=== PATIENT | female | born 1945 | race Caucasian/White ===

== ENCOUNTER 2021-08-04 17:56 | Inpatient (IN) ==
[2021-08-04] MEDS ORDERED: ONDANSETRON 4 MG/2 ML VIAL IV STA (18:55)
[2021-08-04] MEDS ORDERED: HYDROmorphone 2 MG/1 ML VIAL IV STA (18:55)
[2021-08-04] MEDS ORDERED: hydrALAZINE 20 MG/1 ML VIAL IV PRN (19:36)
[2021-08-04] MEDS ORDERED: GLUCAGON 1 MG VIAL IM PRN (19:36)
[2021-08-04] MEDS ORDERED: ONDANSETRON 4 MG/2 ML VIAL IV PRN (19:36)
[2021-08-04] MEDS ORDERED: DEXTROSE 10% 250 ML BAG IV PRN (19:49)
[2021-08-04] MEDS ORDERED: ALPRAZolam 0.5 MG TABLET PO PRN (19:55)
[2021-08-04 21:07] LABS: Basophils # 0.1 10*3/uL (0.0-0.2); Basophils % 0.4 % (0.0-0.8); Eosinophils % 0.1 % (0.00-10.9); Hemoglobin 13.3 GM/DL (12.0-16.0); Immature Granulocytes % 0.7 %; Lymphocytes % 14.5 % (21.3-54.2); Mean Corpuscular HGB Conc 31.7 GM/DL (32-36); Mean Corpuscular Volume 89.4 FL (87-102); Neutrophils % 77.3 % (38.7-73.9); Platelet Count 292 T/CUMM (130-400); Red Cell Distribution Width 13.3 % (9.3-17.3); White Blood Count 13.8 T/CUMM (4-12)
[2021-08-04] MEDS: ATORVASTATIN 10 MG TABLET PO SCH (21:17)
[2021-08-04 21:19] LABS: Calcium 8.9 MG/DL (8.5-10.1); Osmolality,Calculated 281.7 MOS/KG (273-304); Potassium 3.7 MMOL/L (3.5-5.1)
[2021-08-04 22:10] LABS: Glucose,Urine (UA) Negative (Negative); Ketones,Urine Negative (Negative); Nitrite,Urine Negative (Negative); Protein,Urine Negative; Urine Appearance Clear (Clear); Urine Color Yellow (Yellow); Urine Specific Gravity 1.015 (1.001-1.035)
[2021-08-04 22:11] LABS: Bacteria,Urine Occasional /HPF (Few); Bilirubin,Urine Negative (Negative); Blood, Urine Negative (Negative); RBC,Urine <1 /HPF (0-4); Urine Urobilinogen 0.2 EU/DL (<2.0)
[2021-08-04] MEDS: MELATONIN 3 MG TABLET PO SCH (23:08)
[2021-08-04] MEDS: HYDROmorphone 2 MG/1 ML VIAL IV PRN (23:08)
[2021-08-04 23:40] LABS: PT Patient Result 11.5 SECS (10.5-12.0)
[2021-08-05] MEDS: LACTATED RINGERS 1,000 ML IV SCH ×3 (03:40→22:57)
[2021-08-05] MEDS: HYDROmorphone 2 MG/1 ML VIAL IV PRN ×2 (04:57→10:37)
[2021-08-05 05:33] LABS: Basophils # 0.1 10*3/uL (0.0-0.2); Basophils % 0.5 % (0.0-0.8); Eosinophils % 0.2 % (0.00-10.9); Hematocrit 40.9 VOL% (35.7-47.0); Hemoglobin 12.7 GM/DL (12.0-16.0); Immature Granulocytes % 0.6 %; Immature Granulocytes Absolute 0.06 #; Mean Corpuscular HGB Conc 31.1 GM/DL (32-36); Mean Corpuscular Volume 89.9 FL (87-102); Mean Platelet Volume 10.8 FL (9.6-12.0); Monocytes % 6.5 % (1.7-12.7); Neutrophils % 72.2 % (38.7-73.9); Platelet Count 263 T/CUMM (130-400); Red Blood Count 4.55 MC/CUMM (3.8-5.5); Red Cell Distribution Width 13.6 % (9.3-17.3); White Blood Count 10.2 T/CUMM (4-12)
[2021-08-05 07:02] LABS: Calcium 8.9 MG/DL (8.5-10.1); Osmolality,Calculated 283.5 MOS/KG (273-304); Potassium 4.2 MMOL/L (3.5-5.1)
[2021-08-05] MEDS ORDERED: VALSARTAN 160 MG TABLET PO SCH (09:00)
[2021-08-05] MEDS ORDERED: amLODIPine 5 MG TABLET PO SCH (09:00)
[2021-08-05] MEDS ORDERED: ARIPiprazole 2 MG TABLET PO SCH (09:00)
[2021-08-05] MEDS ORDERED: SODIUM CHLORIDE 0.9% 100 ML IV ONE (09:19)
[2021-08-05] MEDS ORDERED: MIDAZOLAM 2 MG/2 ML VIAL ONE (09:19)
[2021-08-05] MEDS ORDERED: propofoL 200 MG/20 ML VIAL IV ONE (09:19)
[2021-08-05] MEDS ORDERED: fentaNYL 100 MCG/2 ML VIAL ONE (09:19)
[2021-08-05] MEDS ORDERED: LIDOCAINE 2% 5 ML VIAL ONE (09:19)
[2021-08-05] MEDS ORDERED: KETAMINE 500 MG/10 ML VIAL ONE (13:13)
[2021-08-05] MEDS ORDERED: ONDANSETRON 4 MG/2 ML VIAL ONE (13:54)
[2021-08-05] MEDS ORDERED: BUPIVACAINE SPINAL 0.75% 2 ML AMP SPINAL ONE (14:20)
[2021-08-05] MEDS ORDERED: LABETALOL 100 MG/20 ML VIAL IV ONE (15:11)
[2021-08-05] MEDS ORDERED: flumazeniL 0.5 MG/5 ML VIAL IV ONE (15:41)
[2021-08-05] MEDS: PANTOPRAZOLE 40 MG TABLET PO SCH (18:14)
[2021-08-05] MEDS: ASPIRIN CHEW 81 MG TABLET PO SCH (18:14)
[2021-08-05] MEDS: FOLIC ACID 1 MG TABLET PO SCH (18:14)
[2021-08-05] MEDS: ESCITALOPRAM 10 MG TABLET PO SCH (18:14)
[2021-08-05 20:49] LABS: ABG Base Excess 1.4 MMOL/L (-2.5-2.5); ABG HCO3 25.5 MMOL/L (20-26); ABG Oxygen Saturation 89.6 % (95-100); ABG PCO2 67.9 MM HG (35-48); ABG PH 7.261 (7.35-7.45); ABG TCO2 27.7 MMOL/L (23-27)
[2021-08-05 20:56] LABS: Basophils # 0.1 10*3/uL (0.0-0.2); Basophils % 0.4 % (0.0-0.8); Eosinophils # 0.1 10*3/uL (0.0-0.87); Eosinophils % 0.5 % (0.00-10.9); Hematocrit 40.5 VOL% (35.7-47.0); Hemoglobin 12.3 GM/DL (12.0-16.0); Immature Granulocytes % 0.4 %; Immature Granulocytes Absolute 0.05 #; Lymphocytes % 16.1 % (21.3-54.2); Mean Corpuscular HGB Conc 30.4 GM/DL (32-36); Mean Corpuscular Volume 92.9 FL (87-102); Monocytes % 7.2 % (1.7-12.7); Neutrophils % 75.4 % (38.7-73.9); Platelet Count 222 T/CUMM (130-400); Red Blood Count 4.36 MC/CUMM (3.8-5.5); Red Cell Distribution Width 13.6 % (9.3-17.3); White Blood Count 12.6 T/CUMM (4-12)
[2021-08-05 21:18] LABS: Albumin 3.1 G/DL (3.4-5.0); Bilirubin,Total 0.5 MG/DL (0.20-1.00); Calcium 8.5 MG/DL (8.5-10.1); Osmolality,Calculated 286.4 MOS/KG (273-304); Total Protein 7.2 G/DL (6.4-8.2)
[2021-08-05] MEDS: APIXABAN 2.5 MG TABLET PO SCH (22:43)
[2021-08-05] MEDS: ATORVASTATIN 10 MG TABLET PO SCH (22:43)
[2021-08-05] MEDS: LEVOTHYROXINE 50 MCG TABLET PO SCH (22:44)
[2021-08-05] MEDS: MELATONIN 3 MG TABLET PO SCH (22:44)
[2021-08-05 23:20] LABS: ABG Base Excess 1.6 MMOL/L (-2.5-2.5); ABG HCO3 25.8 MMOL/L (20-26); ABG Oxygen Saturation 96.3 % (95-100); ABG PCO2 62.5 MM HG (35-48); ABG PH 7.288 (7.35-7.45); ABG PO2 86.4 MM HG (80-95)
[2021-08-06] MEDS ORDERED: FUROSEMIDE 40 MG/4 ML VIAL IV ONE (01:19)
[2021-08-06] MEDS: LACTATED RINGERS 1,000 ML IV SCH ×2 (03:58→18:01)
[2021-08-06 04:00] LABS: Basophils # 0.1 10*3/uL (0.0-0.2); Basophils % 0.4 % (0.0-0.8); Eosinophils # 0.1 10*3/uL (0.0-0.87); Eosinophils % 1.2 % (0.00-10.9); Hematocrit 39.3 VOL% (35.7-47.0); Hemoglobin 12.3 GM/DL (12.0-16.0); Immature Granulocytes % 0.5 %; Immature Granulocytes Absolute 0.06 #; Lymphocytes # 2.6 10*3/uL (1.4-4.0); Lymphocytes % 22.3 % (21.3-54.2); Mean Corpuscular HGB Conc 31.3 GM/DL (32-36); Mean Corpuscular Volume 92.7 FL (87-102); Mean Platelet Volume 10.9 FL (9.6-12.0); Neutrophils % 68.6 % (38.7-73.9); Platelet Count 210 T/CUMM (130-400); Red Blood Count 4.24 MC/CUMM (3.8-5.5); Red Cell Distribution Width 13.6 % (9.3-17.3); White Blood Count 11.5 T/CUMM (4-12)
[2021-08-06 04:03] LABS: ABG Base Excess 4.4 MMOL/L (-2.5-2.5); ABG HCO3 28.3 MMOL/L (20-26); ABG Oxygen Saturation 97.3 % (95-100); ABG PH 7.346 (7.35-7.45); ABG PO2 91.6 MM HG (80-95); ABG TCO2 28.3 MMOL/L (23-27)
[2021-08-06 04:27] LABS: Albumin 3.1 G/DL (3.4-5.0); Bilirubin,Total 0.9 MG/DL (0.20-1.00); Calcium 8.8 MG/DL (8.5-10.1); Osmolality,Calculated 285.5 MOS/KG (273-304); Potassium 4.3 MMOL/L (3.5-5.1); Total Protein 7.6 G/DL (6.4-8.2)
[2021-08-06] MEDS: PANTOPRAZOLE 40 MG TABLET PO SCH (09:56)
[2021-08-06] MEDS: LEVOTHYROXINE 50 MCG TABLET PO SCH (09:56)
[2021-08-06] MEDS: ESCITALOPRAM 10 MG TABLET PO SCH (09:56)
[2021-08-06] MEDS: ROSUVASTATIN 10 MG TABLET PO SCH (09:56)
[2021-08-06] MEDS: APIXABAN 2.5 MG TABLET PO SCH ×2 (09:57→20:35)
[2021-08-06] MEDS: FOLIC ACID 1 MG TABLET PO SCH (09:57)
[2021-08-06] MEDS: ASPIRIN CHEW 81 MG TABLET PO SCH (09:57)
[2021-08-06] MEDS: HYDROmorphone 2 MG/1 ML VIAL IV PRN (13:52)
[2021-08-06] MEDS: ATORVASTATIN 10 MG TABLET PO SCH (20:35)
[2021-08-06] MEDS: MELATONIN 3 MG TABLET PO SCH (20:35)
[2021-08-07 02:54] LABS: ABG Base Excess 8.5 MMOL/L (-2.5-2.5); ABG HCO3 32.3 MMOL/L (20-26); ABG Oxygen Saturation 96.1 % (95-100); ABG PCO2 52.6 MM HG (35-48); ABG PH 7.425 (7.35-7.45); ABG PO2 78.3 MM HG (80-95); ABG TCO2 31.2 MMOL/L (23-27); Allen Test Positive
[2021-08-07 04:47] LABS: Basophils # 0.1 10*3/uL (0.0-0.2); Basophils % 0.5 % (0.0-0.8); Eosinophils # 0.2 10*3/uL (0.0-0.87); Eosinophils % 2.2 % (0.00-10.9); Hematocrit 33.2 VOL% (35.7-47.0); Hemoglobin 10.4 GM/DL (12.0-16.0); Immature Granulocytes % 0.7 %; Immature Granulocytes Absolute 0.07 #; Lymphocytes % 19.6 % (21.3-54.2); Mean Corpuscular HGB Conc 31.3 GM/DL (32-36); Mean Corpuscular Volume 90.7 FL (87-102); Mean Platelet Volume 11.2 FL (9.6-12.0); Monocytes % 7.8 % (1.7-12.7); Neutrophils % 69.2 % (38.7-73.9); Platelet Count 162 T/CUMM (130-400); Red Blood Count 3.66 MC/CUMM (3.8-5.5); Red Cell Distribution Width 13.3 % (9.3-17.3); White Blood Count 10.2 T/CUMM (4-12)
[2021-08-07 05:15] LABS: Calcium 8.6 MG/DL (8.5-10.1); Osmolality,Calculated 276.8 MOS/KG (273-304); Potassium 3.8 MMOL/L (3.5-5.1)
[2021-08-07] MEDS: LEVOTHYROXINE 50 MCG TABLET PO SCH (05:52)
[2021-08-07] MEDS: LACTATED RINGERS 1,000 ML IV SCH (05:52)
[2021-08-07] MEDS: PANTOPRAZOLE 40 MG TABLET PO SCH (09:11)
[2021-08-07] MEDS: ASPIRIN CHEW 81 MG TABLET PO SCH (09:11)
[2021-08-07] MEDS: ESCITALOPRAM 10 MG TABLET PO SCH (09:11)
[2021-08-07] MEDS: APIXABAN 2.5 MG TABLET PO SCH ×2 (09:11→20:20)
[2021-08-07] MEDS: FOLIC ACID 1 MG TABLET PO SCH (09:12)
[2021-08-07] MEDS: ROSUVASTATIN 10 MG TABLET PO SCH (09:12)
[2021-08-07] MEDS ORDERED: ALBUTEROL/IPRATROPIUM 3 ML NEB RESP TX PRN (09:22)
[2021-08-07] MEDS: traMADol 50 MG TABLET PO PRN (16:01)
[2021-08-07] MEDS: ATORVASTATIN 10 MG TABLET PO SCH (20:20)
[2021-08-07] MEDS: MELATONIN 3 MG TABLET PO SCH (20:20)
[2021-08-08 03:45] LABS: Basophils # 0.1 10*3/uL (0.0-0.2); Basophils % 0.6 % (0.0-0.8); Eosinophils # 0.2 10*3/uL (0.0-0.87); Eosinophils % 2.6 % (0.00-10.9); Hematocrit 31.5 VOL% (35.7-47.0); Hemoglobin 9.9 GM/DL (12.0-16.0); Immature Granulocytes % 0.6 %; Immature Granulocytes Absolute 0.05 #; Lymphocytes # 1.8 10*3/uL (1.4-4.0); Lymphocytes % 20.8 % (21.3-54.2); Mean Corpuscular HGB Conc 31.4 GM/DL (32-36); Mean Corpuscular Volume 90.3 FL (87-102); Mean Platelet Volume 11.5 FL (9.6-12.0); Monocytes % 8.5 % (1.7-12.7); Neutrophils % 66.9 % (38.7-73.9); Platelet Count 175 T/CUMM (130-400); Red Blood Count 3.49 MC/CUMM (3.8-5.5); Red Cell Distribution Width 13.3 % (9.3-17.3); White Blood Count 8.6 T/CUMM (4-12)
[2021-08-08 04:03] LABS: Calcium 9.1 MG/DL (8.5-10.1); Potassium 3.6 MMOL/L (3.5-5.1)
[2021-08-08 04:11] LABS: Osmolality,Calculated 267.5 MOS/KG (273-304)
[2021-08-08] MEDS: LEVOTHYROXINE 50 MCG TABLET PO SCH (06:03)
[2021-08-08] MEDS: PANTOPRAZOLE 40 MG TABLET PO SCH (09:05)
[2021-08-08] MEDS: ESCITALOPRAM 10 MG TABLET PO SCH (09:05)
[2021-08-08] MEDS: ROSUVASTATIN 10 MG TABLET PO SCH (09:06)
[2021-08-08] MEDS: APIXABAN 2.5 MG TABLET PO SCH ×2 (09:06→21:18)
[2021-08-08] MEDS: FOLIC ACID 1 MG TABLET PO SCH (09:06)
[2021-08-08] MEDS: ASPIRIN CHEW 81 MG TABLET PO SCH (09:06)
[2021-08-08] MEDS: traMADol 50 MG TABLET PO PRN (14:40)
[2021-08-08] MEDS: MELATONIN 3 MG TABLET PO SCH (21:18)
[2021-08-08] MEDS: ATORVASTATIN 10 MG TABLET PO SCH (21:18)
[2021-08-09] MEDS: LEVOTHYROXINE 50 MCG TABLET PO SCH (06:16)
[2021-08-09] MEDS: ASPIRIN CHEW 81 MG TABLET PO SCH (08:17)
[2021-08-09] MEDS: PANTOPRAZOLE 40 MG TABLET PO SCH (08:18)
[2021-08-09] MEDS: APIXABAN 2.5 MG TABLET PO SCH ×2 (08:18→21:19)
[2021-08-09] MEDS: FOLIC ACID 1 MG TABLET PO SCH (08:18)
[2021-08-09] MEDS: ESCITALOPRAM 10 MG TABLET PO SCH (08:18)
[2021-08-09] MEDS: ROSUVASTATIN 10 MG TABLET PO SCH (08:18)
[2021-08-09] MEDS: traMADol 50 MG TABLET PO PRN ×2 (09:50→15:45)
[2021-08-09] MEDS: ATORVASTATIN 10 MG TABLET PO SCH (21:19)
[2021-08-09] MEDS: MELATONIN 3 MG TABLET PO SCH (21:19)
[2021-08-10] MEDS: LEVOTHYROXINE 50 MCG TABLET PO SCH (06:01)
[2021-08-10] MEDS: PANTOPRAZOLE 40 MG TABLET PO SCH (09:08)
[2021-08-10] MEDS: APIXABAN 2.5 MG TABLET PO SCH ×2 (09:08→20:39)
[2021-08-10] MEDS: ESCITALOPRAM 10 MG TABLET PO SCH (09:08)
[2021-08-10] MEDS: ASPIRIN CHEW 81 MG TABLET PO SCH (09:08)
[2021-08-10] MEDS: ROSUVASTATIN 10 MG TABLET PO SCH (09:08)
[2021-08-10] MEDS: FOLIC ACID 1 MG TABLET PO SCH (09:08)
[2021-08-10] MEDS: traMADol 50 MG TABLET PO PRN ×2 (14:00→17:58)
[2021-08-10] MEDS: ATORVASTATIN 10 MG TABLET PO SCH (20:39)
[2021-08-10] MEDS: MELATONIN 3 MG TABLET PO SCH (20:39)
[2021-08-11] MEDS: LEVOTHYROXINE 50 MCG TABLET PO SCH (05:48)
[2021-08-11] MEDS: ROSUVASTATIN 10 MG TABLET PO SCH (09:10)
[2021-08-11] MEDS: FOLIC ACID 1 MG TABLET PO SCH (09:10)
[2021-08-11] MEDS: PANTOPRAZOLE 40 MG TABLET PO SCH (09:10)
[2021-08-11] MEDS: APIXABAN 2.5 MG TABLET PO SCH (09:10)
[2021-08-11] MEDS: ESCITALOPRAM 10 MG TABLET PO SCH (09:10)
[2021-08-11] MEDS: ASPIRIN CHEW 81 MG TABLET PO SCH (09:10)
[2021-08-11] MEDS: traMADol 50 MG TABLET PO PRN (10:38)
[2021-08-11 11:45] VITALS: BP 126/59
== END 2021-08-11 13:37 | DRG 521 ==
LOC: EDUNIT# → EDBD → N.ED 17:56 → SUATTDRO 19:36 → N.EDINP 19:36 → N.TELES 20:50 → N.ICU 08-05 20:25 → N.3E 08-09 19:53
PROVIDERS: ADMIT Internal Medicine Geriatric Medicine; ATTEND Internal Medicine